=== PATIENT | male | born 1960 | race Caucasian/White ===

== ENCOUNTER 2021-10-08 13:48 | Emergency (ER) | payer OTHER, SELFPAY ==
[2021-10-08 14:08] VITALS: BP 148/75; PULSE 71; RESP 18; TEMP 36; O2SAT 97
--- NOTE | 2021-10-08 14:25 | ED.URI ---
HPI - URI/Sore Throat General Chief Complaint: Upper Respiratory Infection Stated Complaint: Flu like symptoms Time Seen by Provider: 10/08/21 14:25 Source: patient, RN notes reviewed and old records reviewed Mode of arrival: ambulatory Limitations: no limitations History of Present Illness HPI Narrative: 61 year old male who presents to [facility] with complaints of having headache body aches and diarrhea since yesterday with fever up to 101F. Patient reports that he has had COVID and flu innuimizations and he did take a home test for COVID which was negative.Patient is very concerned that he could have COVID and upset because he is suppose to retire this Saturday. Patient reports that he has ate a piece of toast and drank some propel because he was worried he was going to get dehydrated since he has had diarrhea for the past 24 hours, denies any abdominal pain or any nausea or vomiting MD elicited complaint: fever and other (headache, body aches and diarrhea) Related Data Home Medications Medication Instructions Recorded Confirmed lisinopril 10 mg PO DAILY 10/08/21 10/08/21 metformin 500 mg PO DAILY 10/08/21 10/08/21 sertraline 50 mg PO DAILY 10/08/21 10/08/21 simvastatin 40 mg PO DAILY 10/08/21 10/08/21 Allergies Allergy/AdvReac Type Severity Reaction Status Date / Time No Known Allergies Allergy Verified 10/08/21 14:24 Review of Systems Review of Systems: CONSTITUTIONAL:Positive for fevers, chills, or sweats. EYES: Denies visual changes, redness, or discharge. ENT: Denies rhinorrhea, congestion, sore throat, or otalgia. CARDIOVASCULAR: Denies chest pain, palpitations, or edema. RESPIRATORY: Denies cough or dyspnea. GASTROINTESTINAL: Denies abdominal pain, nausea, vomiting,positive for diarrhea. GENITOURINARY: Denies dysuria or hematuria. SKIN: Denies rash or itching. MUSCULOSKELETAL: Denies back pain, joint pain,reports generalized body pain NEUROLOGIC: Positive for headache, no numbness, or weakness. PSYCHIATRIC: History of anxiety or depression. All systems reviewed & are unremarkable except as noted in HPI and below PMFSH Past Medical History Medical History (Updated 10/08/21 @ 19:22 by Mirlande Mishra NP) Anxiety with depression Diabetes Elevated cholesterol Hypertension Social History Social History (Updated 10/08/21 @ 19:18 by Mirlande Mishra NP) Smoking status: Never smoker Alcohol intake: current Alcohol use details: rare social Substance use: never Living arrangements: with family Gender identity (if verbalized by the patient): Male Comments At time of signature, agree with nursing past medical, surgical, social and family history. There is no relevant family history pertinent to the presenting complaint Exam Narrative: GENERAL: Well-appearing, well-nourished, obese and in no acute distress. HEAD: Normocephalic, atraumatic. EYES: PERRLA and EOMI. ENT: Nares clear, no rhinorrhea or epistaxis. Mucous membranes moist. TM's normal with good light reflex, throat pink with no lesions or exudate no tonsil enlargement NECK: Supple. no lymphadenopathy CHEST: Clear to auscultation. No respiratory distress.SAO2 97% on room air HEART: Regular rate and rhythm. No murmur heard. Normal peripheral pulses. ABDOMEN: Soft, nontender to palpation, nondistended, normal active bowel sounds.no nausea or vomiting diarrhea frequently for past 24 hours EXTREMITIES: Normal range of motion. No edema. SKIN: Warm, dry, no rash. NEURO: No focal deficits. Alert and oriented x3. Course Course Level of Care: Express Care Visit Vital Signs Vital signs: Vital Signs Temperature 36.0 C L 10/08/21 14:08 Pulse Rate 71 10/08/21 14:08 Respiratory Rate 18 10/08/21 14:08 Blood Pressure 148/75 H 10/08/21 14:08 Pulse Oximetry 97 10/08/21 14:08 Temperature 36.0 C L 10/08/21 14:08 Pulse Rate 71 10/08/21 14:08 Respiratory Rate 18 10/08/21 14:08 Blood Pressure 148/75 H 10/08/21 14:08
[2021-10-09 17:08] LABS: SARS-CoV-2 RNA PCR Negative
== END 2021-10-08 15:00 | disposition home or self-care (01) ==
PROVIDERS: Emergency Provider Registered Nurse
DX: R50.9 Fever, unspecified (principal); Z20.822 Contact with and (suspected) exposure to COVID-19; E11.9 Type 2 diabetes mellitus without complications; E78.00 Pure hypercholesterolemia, unspecified; I10 Essential (primary) hypertension; F41.9 Anxiety disorder, unspecified; F32.A Depression, unspecified
CPT/HCPCS: 87804; 99203; C9803; G0463; U0003; U0005